=== PATIENT | female | born 1970 | race Two or more races ===

== ENCOUNTER 2019-07-05 18:25 | Emergency (ER) | payer SELFPAY ==
[~2019-07-05] VITALS: Ht 162.6 cm; Wt 67.3 kg
--- NOTE | 2019-07-05 19:35 | NUR ---
NIL X 1
--- NOTE | 2019-07-05 19:43 | NUR ---
NIL X 2
--- NOTE | 2019-07-05 20:37 | NUR ---
PT HERE FOR FEELING DIZZY WITH A HEAD ACHE X1DAY. Pt reports dizzyness with ambulation and unable to mainatin errect posture without being dizzy. Pt placed in bed. Pt is a/ox4 and nadn. Pt connected to monitors and call light in reach. awaiting further orders.
[2019-07-05 20:46] LABS: BASOPHILS # (AUTO) 0.02 x10^3/uL (0-0.1); BASOPHILS % (AUTO) 0 % (0-1); EOSINOPHILS # (AUTO) 0.07 x10^3/uL (0-0.4); EOSINOPHILS % (AUTO) 1 % (1-7); LYMPHOCYTES # (AUTO) 1.42 x10^3/uL (1-3.4); LYMPHOCYTES % (AUTO) 20 % (22-44); MD NO; MEAN CORPUSCULAR HEMOGLOBIN 30.9 pg (27.0-34.8); MEAN CORPUSCULAR HGB CONC 33.9 g/dL (32.4-35.8); MEAN CORPUSCULAR VOLUME 91.3 fL (80-100); MEAN PLATELET VOLUME 10.1 fL (7.4-10.4); MONOCYTES # (AUTO) 0.32 x10^3/uL (0.2-0.8); MONOCYTES % (AUTO) 5 % (2-9); NEUTROPHILS # (AUTO) 5.18 x10^3/uL (1.8-6.8); NEUTROPHILS % (AUTO) 74 % (42-75); PLATELET COUNT 190 x10^3/uL (130-400); RED BLOOD COUNT 4.23 x10^6/uL (3.82-5.3); RED CELL DISTRIBUTION WIDTH 13.5 % (9.6-15.2)
[2019-07-05 20:55] LABS: ALANINE AMINOTRANSFERASE 13 U/L (12-78); ALBUMIN 3.5 g/dL (3.4-5.0); ANION GAP 6 mmol/L (5-15); CALCIUM 8.2 mg/dL (8.5-10.1); CHLORIDE 111 mmol/L (98-107); CREATININE 0.59 mg/dL (0.55-1.02)
[2019-07-05 21:00] LABS: ALKALINE PHOSPHATASE 43 U/L (45-117); BILIRUBIN,TOTAL 0.3 mg/dL (0.2-1.0); TOTAL PROTEIN 7.6 g/dL (6.4-8.2); TROPONIN I < 0.015 ng/mL (0.000-0.045)
[2019-07-05] MEDS ORDERED: GUAIFENESIN 100 MG/5 ML, 5ML UDC PO ONE (21:30)
[2019-07-05] MEDS ORDERED: hydrALAzine 20 MG/ML, 1ML IM ONE (21:30)
[2019-07-05 21:40] VITALS: BP 142/89
--- NOTE | 2019-07-05 21:40 | NUR ---
Patient/Caregiver given discharge instructions and they have confirmed that they understand the instructions. Patient ambulatory with steady gait.
== END 2019-07-05 22:33 | disposition home or self-care (01) ==
LOC: ED 22:00
DX: R42 Dizziness and giddiness (principal); R20.2 Paresthesia of skin; M54.2 Cervicalgia
CPT/HCPCS: 36415; 71046; 72050; 80053; 84484; 84703; 85025; 93005; 99284

== ENCOUNTER 2020-08-12 21:23 | Emergency (ER) | payer SELFPAY ==
[~2020-08-12] VITALS: Ht 162.6 cm; Wt 67.9 kg
--- NOTE | 2020-08-12 21:47 | NUR ---
patient ambulated to bathroom. changing into hospital gown at this time.
[2020-08-12] MEDS ORDERED: AMLO-211 PO (21:56)
--- NOTE | 2020-08-12 22:16 | NUR ---
warm blanket provided. Jarrett JOEL and Madalyn mccarthy interpreted during assessment. call davis in reach. safety maintained. IV started and labs drawn. IVF started. remains at bedside. will continue to monitor
[2020-08-12 22:18] LABS: BASOPHILS % (AUTO) 0 % (0-1); EOSINOPHILS % (AUTO) 1 % (1-7); LYMPHOCYTES % (AUTO) 22 % (22-44); MEAN CORPUSCULAR HEMOGLOBIN 31.1 pg (27.0-34.8); MEAN PLATELET VOLUME 9.2 fL (7.4-10.4); MONOCYTES % (AUTO) 5 % (2-9); NEUTROPHILS % (AUTO) 72 % (42-75); PLATELET COUNT 195 x10^3/uL (130-400); RED BLOOD COUNT 4.65 x10^6/uL (3.82-5.3); RED CELL DISTRIBUTION WIDTH 13.2 % (9.6-15.2)
[2020-08-12 22:19] LABS: MD NO
[2020-08-12 22:28] LABS: ALANINE AMINOTRANSFERASE 21 U/L (12-78); ALBUMIN 4.1 g/dL (3.4-5.0); ANION GAP 11 mmol/L (5-15); CALCIUM 8.7 mg/dL (8.5-10.1); CHLORIDE 103 mmol/L (98-107); CREATININE 0.72 mg/dL (0.55-1.02)
[2020-08-12] MEDS ORDERED: SODIUM CHLORIDE 0.9% 1,000ML IVBOLUS ONE (22:30)
[2020-08-12 22:31] LABS: ALKALINE PHOSPHATASE 61 U/L (45-117); BILIRUBIN,TOTAL 0.4 mg/dL (0.2-1.0); TOTAL PROTEIN 8.6 g/dL (6.4-8.2)
[2020-08-12] MEDS ORDERED: POTASSIUM CHLORIDE 20 MEQ TAB.ER.PRT PO ONE (23:00)
[2020-08-12] MEDS ORDERED: POTASSIUM CHLORIDE 20 MEQ TAB.ER.PRT ONE (23:25)
--- NOTE | 2020-08-12 23:45 | NUR ---
LIEN JOEL NOTIFIED OF PATIENT'S ELEVATED HR AND CONTINUES TO HAVE TREMORS AT TIMES WITH R EYE TWITCHING. PATIENT WAS UP FOR DC HR HAS BEEN STABILIZED IN 80'S-90'S NSR. WILL CONTINUE TO MONITOR FOR NOW AND ADMINISTER ATIVAN.CALL PITT IN REACH. SAFETY MAINTAINED. WILL CONTINUE TO MONITOR
[2020-08-13] MEDS ORDERED: LORazepam 1MG TABLET PO ONE
[2020-08-13] MEDS ORDERED: LORazepam 1MG TABLET ONE (00:09)
--- NOTE | 2020-08-13 00:16 | NUR ---
PATIENT CARE TECHNICIAN INSTRUCTOR SERVICES USED TO EDUCATE PATIENT ON PLAN OF CARE TO CONTINUE TO MONITOR AND ATIVAN.
--- NOTE | 2020-08-13 00:46 | NUR ---
PATIENT RESTING IN BED WITH EYES CLOSED. NO FURTHER NEEDS AT THIS TIME. REMAINS AT BEDSIDE
--- NOTE | 2020-08-13 00:55 | NUR ---
PATIENT REASSESSED AND REPORTS SHE FEELS BETTER. HR IS STABILIZED IN THE 70'S AND BP IS NOW STABILIZED. I DISCUSSED PLAN TO DC WITH DR. SULLIVAN AND BOTH IN AGREEMENT PATIENT IS SAFE FOR DISCHARGE AT THIS TIME.
--- NOTE | 2020-08-13 01:10 | NUR ---
DISCHARGE INSTRUCTIONS REVIEWED WITH PATIENT AND AT BEDSIDE WITH DOPE WORKER [employer]. NO FURTHER QUESTIONS. IV REMOVED PER DC PROTOCOL. STEADY GAIT IN ROOM. PATIENT EDUCATED THAT SHE IS NOT ALLOWED TO DRIVE OR DRINK ALCOHOL AFTER BEING GIVEN THIS MEDICATION DURING EDUCATION FOR ATIVAN ADMINISTRATION WITH [employer] WORKER [employer]. PATIENT ACKNOWLEDGED THIS EDUCATION AT THAT TIME. VS REMAIN STABLE ON RA. ALL PERSONAL BELONGINGS WITH PATIENT ON DC
[2020-08-13 01:12] VITALS: BP 106/64
--- NOTE | 2020-08-13 01:27 | NUR ---
ON DISCHARGE, PATIENT AND ACKNOWLEDGED AGAIN THAT PATIENT IS NOT TO DRIVE AFTER MEDICATION GIVEN.
== END 2020-08-13 01:28 | disposition home or self-care (01) ==
LOC: ED 08-13 01:00
DX: E87.6 Hypokalemia (principal); M54.6 Pain in thoracic spine; R00.0 Tachycardia, unspecified; F41.9 Anxiety disorder, unspecified
CPT/HCPCS: 36415; 80053; 82962; 85025; 93005; 96360; 99285; J7030

== ENCOUNTER 2020-08-14 12:21 | Emergency (ER) | payer SELFPAY ==
[~2020-08-14] VITALS: Ht 162.6 cm; Wt 67.4 kg
[~2020-08-14 12:21] MED LIST: AMLO-211 PO
--- NOTE | 2020-08-14 12:59 | NUR ---
PT ARRIVES WITH FAMILY MEMBER WITH CO INTERMITTENT "PALM AND FEET SWEATING" X THREE DAYS. PT RECLINED IN [facility] [place], NAD NOTED. SEEN IN ED WEDNESDAY FOR SAME, FOUND TO BE HYPOKALEMIC. SEEN AT PCP YESTERDAY, RX'D POTASSIUM SUPPLEMENTS. PT REPORTS EPISODES ARE UNPROVOKED AND ARE NOT ACCOMPANIED BY ANXIETY, SOB, CP, OR MUSCLE SPASM, AND RESOLVE SPONTANEOUSLY. DENIES DM HX. BP/SPO2/ECG MONITORING IN PLACE. NSR ON MONITOR. AWAITING ERP EVAL.
--- NOTE | 2020-08-14 13:15 | NUR ---
REPORT TO GRAY ROMERO
[2020-08-14 14:01] LABS: BASOPHILS % (AUTO) 0 % (0-1); EOSINOPHILS % (AUTO) 1 % (1-7); LYMPHOCYTES % (AUTO) 23 % (22-44); MEAN CORPUSCULAR HEMOGLOBIN 31.2 pg (27.0-34.8); MEAN CORPUSCULAR HGB CONC 34.9 g/dL (32.4-35.8); MEAN PLATELET VOLUME 9.4 fL (7.4-10.4); MONOCYTES % (AUTO) 7 % (2-9); NEUTROPHILS % (AUTO) 70 % (42-75); PLATELET COUNT 205 x10^3/uL (130-400); RED BLOOD COUNT 4.62 x10^6/uL (3.82-5.3); RED CELL DISTRIBUTION WIDTH 13.7 % (9.6-15.2)
[2020-08-14 14:02] LABS: MD NO
[2020-08-14 14:07] LABS: ALANINE AMINOTRANSFERASE 20 U/L (12-78); ALBUMIN 3.9 g/dL (3.4-5.0); ANION GAP 7 mmol/L (5-15); CALCIUM 8.3 mg/dL (8.5-10.1); CHLORIDE 108 mmol/L (98-107); CREATININE 0.65 mg/dL (0.55-1.02)
[2020-08-14 14:09] LABS: MICROSCOPIC NOT IND
[2020-08-14 14:17] LABS: ALKALINE PHOSPHATASE 58 U/L (45-117); BILIRUBIN,TOTAL 0.4 mg/dL (0.2-1.0); TOTAL PROTEIN 8.2 g/dL (6.4-8.2)
[2020-08-14 15:10] VITALS: BP 112/71
--- NOTE | 2020-08-14 15:24 | NUR ---
This RN on phone with pt's son, all questions answered.
== END 2020-08-14 15:27 | disposition home or self-care (01) ==
LOC: ED 13:43
DX: R53.1 Weakness (principal); R53.83 Other fatigue; E87.6 Hypokalemia
CPT/HCPCS: 36415; 80053; 81003; 84443; 85025; 99283

== ENCOUNTER 2020-10-19 21:39 | Emergency (ER) | payer SELFPAY ==
[~2020-10-19] VITALS: Ht 162.6 cm; Wt 73.0 kg
[2020-10-19 22:45] LABS: MICROSCOPIC AUTO
[2020-10-19 23:45] LABS: ANION GAP 6 mmol/L (5-15); CALCIUM 8.6 mg/dL (8.5-10.1); CHLORIDE 109 mmol/L (98-107)
[2020-10-19 23:50] VITALS: BP 107/61
[2020-10-19 23:52] LABS: BASOPHILS % (AUTO) 0 % (0-1); EOSINOPHILS % (AUTO) 2 % (1-7); LYMPHOCYTES % (AUTO) 29 % (22-44); MEAN CORPUSCULAR HGB CONC 34.5 g/dL (32.4-35.8); MEAN PLATELET VOLUME 8.6 fL (7.4-10.4); MONOCYTES % (AUTO) 8 % (2-9); NEUTROPHILS % (AUTO) 61 % (42-75); PLATELET COUNT 236 x10^3/uL (130-400); RED BLOOD COUNT 4.35 x10^6/uL (3.82-5.3); RED CELL DISTRIBUTION WIDTH 13.7 % (9.6-15.2)
[2020-10-19 23:53] LABS: MD NO
== END 2020-10-20 00:02 | disposition home or self-care (01) ==
LOC: ED 22:00
DX: N30.00 Acute cystitis without hematuria (principal); R35.0 Frequency of micturition
CPT/HCPCS: 36415; 80048; 81001; 85025; 87077; 87086; 99283